=== PATIENT | male | born 1995 | race Caucasian/White ===

== ENCOUNTER 2021-06-04 15:34 | Emergency (ER) | payer BC ==
[2021-06-04] MEDS ORDERED: LEVOFLOXACIN750 MG PO (17:36)
== END 2021-06-04 18:00 | disposition home or self-care (01) ==
LOC: ER1 15:34
DX: S91.331A Puncture wound without foreign body, right foot, initial encounter (principal); L03.115 Cellulitis of right lower limb; Z23 Encounter for immunization; X58.XXXA Exposure to other specified factors, initial encounter
CPT/HCPCS: 73630; 90715; 99283